=== PATIENT | female | born 1930 | race Caucasian/White ===

== ENCOUNTER 2019-01-18 16:33 | Inpatient (IN) | payer OTHER ==
[~2019-01-18] VITALS: Ht 165.1 cm; Wt 64.0 kg
[2019-01-18] MEDS ORDERED: SODIUM CHLORIDE 0.9% 1,000 ML IV ONE (19:19)
[2019-01-18 19:43] LABS: Basophils # (auto) 0 uL; Basophils % (auto) 0.3 % (0.0-2.0); Eosinophils # (auto) 0.1 uL; Eosinophils % (auto) 0.9 % (0.0-7.0); Hematocrit 38.8 % (36.0-46.0); Hemoglobin 13.5 g/dL (12.2-16.2); Lymphocytes # (auto) 2.3 uL; Lymphocytes % (auto) 37.9 % (10.0-50.0); Mean Corpuscular Hemoglobin 31.9 pg (28.0-32.0); Mean Corpuscular Hgb Conc. 34.9 g/dL (32.0-36.0); Mean Corpuscular Volume 91.4 fL (80.0-100.0); Monocytes # (auto) 0.6 uL; Monocytes % (auto) 10.2 % (0.0-12.0); Neutrophils % (auto) 50.7 % (37.0-80.0); Platelet Count (auto) 247 10^3/uL (140-450); Red Blood Cells 4.24 10^6/uL (4.0-5.20)
[2019-01-18 19:56] LABS: INR 1.03 (0.9-1.15)
[2019-01-18 20:00] LABS: Albumin 3.8 g/dL (3.4-5.0); BUN/Creatinine Ratio 20.3; Calcium 9.6 mg/dL (8.5-10.1); Magnesium 2.4 mg/dL (1.6-2.6); Potassium 3.8 mmol/L (3.5-5.1)
[2019-01-18 20:03] LABS: Bilirubin, Total 0.5 mg/dL (0.2-1.0); Total Protein 7.4 g/dL (6.4-8.2)
[2019-01-18 22:26] LABS: Urine Bacteria FEW /hpf (None Seen); Urine Blood Negative /uL (Negative); Urine Specific Gravity 1.008 (1.001-1.035); Urine WBC 2 /hpf (0 - 5)
[2019-01-19] MEDS ORDERED: DOCUSATE SOD 100 MG CAP PO PRN (03:45)
[2019-01-19] MEDS ORDERED: ONDANSETRON HCL 4 MG/2 ML VIAL IV PRN (03:45)
[2019-01-19] MEDS ORDERED: MORPHINE SULFATE 4 MG/ML SYR/VIAL IV PRN (03:45)
[2019-01-19] MEDS ORDERED: DEXTROSE (50%) 50ML SYRG IV PRN (03:45)
[2019-01-19] MEDS ORDERED: ALUM & MAG HYDROX-SIMETH LIQ(MAALOX) 30 ML PO PRN (03:45)
[2019-01-19] MEDS: InsuLIN REG 1unit/0.01ml Soln (100units/ml) SC SCH ×5 (04:00→20:36)
[2019-01-19] MEDS: ACCU-CHEK COMFORT CURVE STRIP VI SCH ×5 (04:00→20:36)
[2019-01-19] MEDS ORDERED: hydrALAZINE HCL 20 MG/ML VL IV ONE (04:30)
[2019-01-19] MEDS: SODIUM CHLORIDE 0.9% 1,000 ML IV SCH ×2 (05:42→20:22)
[2019-01-19 08:35] VITALS: BP 177/76
--- NOTE | 2019-01-19 09:10 | NUR ---
MS admit from ER [employer], [place] admitted to tele/MS after SBAR received. Patient oriented to Korin Santos, primary RN, unit, room, bed, and unit policies regarding patient care and visiting hours. Patient weighed by bedscale and encouraged to call if they need something. All questions and concerns addressed, patient verbalized understanding. Note:
--- NOTE | 2019-01-19 09:15 | NUR ---
ASSESSMENT NOTE PT IS ALERT ORIENTED X4, ARRIVED BY ALLY FROM ER, GENERALIS WEAKNESS NOTED, LEGALLY BLIND, PT WAS ABLE TO VERBALIS CLEARLY OVER AND OVER HER SITUATION AT HOME, STATED ITS GETTING VERY BAD, I CAN'T GO BACK THERE>, PT IS VERY SHORT THIN, FRAIL, WITH HERZOG CATHETER, URINE IS FOUL, YELLOW TO ORANGE, ABLE TO SELF REPOSITION AND VERBALIS HER DEMANDS, PT IS VERY WEAK TO WALK INDEPENDENTLY, NEED ASSISTANCE, BED SIDE COMMODE PROVIDED, EDUCATED OF HOW TO USE THE CALL LIGHT, WITHIN REACH, BED ALARM ACTIVATED
[2019-01-19] MEDS: cefTRIAXone 1GM/50ML D5W 50 ML IV SCH (10:05)
[2019-01-19 10:32] VITALS: BP 137/73
[2019-01-19] MEDS: ACETAMINOPHEN 325 MG TAB PO PRN (11:45)
[2019-01-19 12:50] LABS: BUN/Creatinine Ratio 14.6; Potassium 3.6 mmol/L (3.5-5.1)
[2019-01-19 13:10] LABS: Basophils # (auto) 0 uL; Basophils % (auto) 0.3 % (0.0-2.0); Eosinophils # (auto) 0 uL; Eosinophils % (auto) 0.1 % (0.0-7.0); Hematocrit 42.3 % (36.0-46.0); Hemoglobin 14.4 g/dL (12.2-16.2); Lymphocytes # (auto) 1.5 uL; Lymphocytes % (auto) 16.8 % (10.0-50.0); Mean Corpuscular Hemoglobin 31.1 pg (28.0-32.0); Mean Corpuscular Volume 91.5 fL (80.0-100.0); Monocytes # (auto) 0.6 uL; Monocytes % (auto) 7.2 % (0.0-12.0); Neutrophils # (auto) 6.7 uL; Neutrophils % (auto) 75.6 % (37.0-80.0); Nucleated Red Blood Cells % 0.1 %; Platelet Count (auto) 294 10^3/uL (140-450); Red Blood Cells 4.62 10^6/uL (4.0-5.20); White Blood Cell 8.8 10^3/uL (4.4-10.8)
[2019-01-19 14:03] VITALS: BP 152/66
--- NOTE | 2019-01-19 15:26 | NUR ---
ANXIETY PT IS SHAKING AND CONTINUE FEELING UPSET REGARDING HER LIVING SITUATION WITH HER SON, REQUESTED MEDICINE TO CALM HER DOWN, ATIVAN GIVEN TO HER
[2019-01-19] MEDS: HYDROcodone-ACET 5/325MG TAB PO PRN ×2 (15:48→20:44)
--- NOTE | 2019-01-19 16:00 | NUR ---
PATIENT'S GRAND DAUGHTER CALLED REQUESTED INFORMATION, MADE AWARE THAT THERE IS NO PASS WORD SET UP YET VERIFY WITH PT, PT DOES NOT WANT THEM TO COME OVER TO VISIT HER OR GIVE ANY INFORMATION OUT
[2019-01-19 16:53] VITALS: BP 151/64
--- NOTE | 2019-01-19 17:25 | NUR ---
PATIENT IS FEELING MUCH BETTER, WALKING AROUND INDEPENDENTLY WITH FRONT WHEEL WALKER, FEELING HAPPY, SITTING ON CHAIR AT BED SIDE
--- NOTE | 2019-01-19 18:40 | NUR ---
PT CONTINUE STABLE, NO DISTRESS NOTED, SITTING AT THE SIDE OF THE BED
--- NOTE | 2019-01-19 19:40 | NUR ---
Opening Shift Note Assumed care of patient, awake, AAOx4. No S/S of distress/SOB or pain. On room air, ambulatory with FWW at bedside. Jaeger catheter patent and draining to gravity. Bed in lowest locked position, side rails up x2, call light within reach. Instructed on POC and to call for assist PRN, will continue to monitor for changes Q1hr and PRN.
[2019-01-19 22:00] VITALS: BP 160/76
[2019-01-19] MEDS: LORazepam 0.5 MG TAB PO PRN (22:22)
[2019-01-20] MEDS: ACCU-CHEK COMFORT CURVE STRIP VI SCH ×7 (00:26→23:41)
[2019-01-20] MEDS: HYDROcodone-ACET 5/325MG TAB PO PRN ×3 (02:35→23:42)
[2019-01-20] MEDS: InsuLIN REG 1unit/0.01ml Soln (100units/ml) SC SCH ×7 (04:12→23:48)
[2019-01-20] MEDS: hydrALAZINE HCL 25 MG TAB PO PRN ×3 (05:10→22:36)
[2019-01-20 06:00] VITALS: BP 158/71
--- NOTE | 2019-01-20 07:30 | NUR ---
Opening Shift Note Assuming care of patient at this time. Patient is awake and alert. Patient denies pain. Patient shows no signs or symptoms of distress or shortness of breath. Bed is locked and lowered with side rails up x2. Instructed patient on the plan of care for today and to call for assistance as needed. Call light within reach. Will continue to round hourly and as needed.
[2019-01-20 09:00] VITALS: BP 134/66
[2019-01-20] MEDS: cefTRIAXone 1GM/50ML D5W 50 ML IV SCH (09:33)
--- NOTE | 2019-01-20 11:03 | NUR ---
PT Patient refused to be OOB during visit and stated she just got back from the restroom. Addendum: 01/20/19 at 1104 by HERMES SONI PTT Amended: Links added.
[2019-01-20] MEDS: SODIUM CHLORIDE 0.9% 1,000 ML IV SCH ×2 (12:55→21:17)
[2019-01-20 13:00] VITALS: BP 150/75
--- NOTE | 2019-01-20 15:22 | NUR ---
Assessment ss consult Pt is a 88 yr old alert and oriented but very anxious patient. SS consult given for "dc to boarding care". Pt was oriented to JUDITH pastrana, president. Pt has no contact # on file other than her home phone #. Pt stated that her family won't give here their phone #. SW dialed contact number and it was disconnected. Pt stated that she "used to live at home with her son, his girlfriend and their kids but that she left all of her stuff there and went to the hospital and doesn't plan on going back." SW asked where she was planning to go to and pt stated that she didn't know. SW educated pt on the options of "room and board" and "board and care" residences. Pt stated that she only gets $800 monthly and that her family can't financially help her. She also stated that she is too blind to live on her own in a room and board with out assistance getting around, bathing and dressing. Pt stated that her son's girlfriend set up caregiving for the pt for $400 monthly but that it wasn't working out due to arguments. Pt stated that she has a history with falls is getting really weak and has a UTI. Pt stated that she uses a shower chair and walker in the home. Pt states that she is really anxious and tried getting up on her own to use the restroom. Pt is a high fall risk. Due to the fact that pt is blind and stated that she can't call the # for room and boards, SW offered to call a couple of the room and board landlords to have them contact her, pt declined. MARIXA also educated pt on the option of private caregivers and offered referral information for the pt. Addendum: 01/20/19 at 1622 by BENITA WATERMAN Amended: Links added.
--- NOTE | 2019-01-20 16:13 | NUR ---
faxed over d/c paperwork and order for placement to Sherri Tracy at [facility]. Sherri Tracy stated Linsey sethi called her and stated she will talk with [place] sethi for placement of this pt
--- NOTE | 2019-01-20 16:29 | NUR ---
Assessment update MARIXA forgot to mention that pt would benefit from for a home safety eval and PT. Addendum: 01/20/19 at 1631 by BENITA WATERMAN SS Amended: Links added.
[2019-01-20 17:00] VITALS: BP 160/75
[2019-01-20 18:09] VITALS: BP 155/88
--- NOTE | 2019-01-20 19:07 | NUR ---
Closing Shift Note Patient resting in bed. No distress noted. Patient has been medicated for pain. Will endorse care to the night auditor RN.
--- NOTE | 2019-01-20 19:10 | NUR ---
Opening Shift Note Assumed care of patient, awake and alert. No S/S of distress/SOB or pain. POC discussed and questions answered. Bed is locked in lowest position with side rails up x2 for safety, call light is within reach and patient is encouraged to call for assistance PRN, will continue to monitor for changes Q1hr and PRN.
[2019-01-20] MEDS: LORazepam 0.5 MG TAB PO PRN (21:22)
[2019-01-20 22:00] VITALS: BP 168/82
[2019-01-21] VITALS (7 sets, daily range): BP systolic 135–160; BP diastolic 68–76
[2019-01-21] MEDS: ACETAMINOPHEN 325 MG TAB PO PRN ×3 (01:56→15:55)
[2019-01-21] MEDS: ACCU-CHEK COMFORT CURVE STRIP VI SCH ×5 (03:58→19:49)
[2019-01-21] MEDS: InsuLIN REG 1unit/0.01ml Soln (100units/ml) SC SCH ×5 (04:02→20:20)
[2019-01-21] MEDS: hydrALAZINE HCL 25 MG TAB PO PRN (06:14)
[2019-01-21] MEDS: HYDROcodone-ACET 5/325MG TAB PO PRN ×3 (06:14→23:10)
[2019-01-21 06:16] LABS: Basophils # (auto) 0 uL; Basophils % (auto) 0.5 % (0.0-2.0); Eosinophils # (auto) 0.1 uL; Eosinophils % (auto) 1.8 % (0.0-7.0); Hematocrit 37.7 % (36.0-46.0); Hemoglobin 13.1 g/dL (12.2-16.2); Lymphocytes # (auto) 1.8 uL; Lymphocytes % (auto) 28.9 % (10.0-50.0); Mean Corpuscular Hemoglobin 31.8 pg (28.0-32.0); Mean Corpuscular Hgb Conc. 34.7 g/dL (32.0-36.0); Mean Corpuscular Volume 91.7 fL (80.0-100.0); Monocytes # (auto) 0.6 uL; Monocytes % (auto) 9.9 % (0.0-12.0); Neutrophils # (auto) 3.6 uL; Neutrophils % (auto) 58.9 % (37.0-80.0); Nucleated Red Blood Cells % 0.1 %; Platelet Count (auto) 233 10^3/uL (140-450); Red Blood Cells 4.11 10^6/uL (4.0-5.20); Red Cell Distribution Width 14.9 % (11.8-14.3); White Blood Cell 6.1 10^3/uL (4.4-10.8)
[2019-01-21 06:42] LABS: Potassium 3.6 mmol/L (3.5-5.1)
[2019-01-21 06:47] LABS: BUN/Creatinine Ratio 19.7; Calcium 8.5 mg/dL (8.5-10.1); Magnesium 2.3 mg/dL (1.6-2.6)
--- NOTE | 2019-01-21 07:32 | NUR ---
OPENING SHIFT NOTES Assumed care of patient from public relations nurse. Patient is alert and oriented x3, patient states she is "confused and cannot remember why she is in the hospital". Patient complaining off lower abdominal pain level 7/10 and requesting pain medication. No other signs of distress noted. Plan of care was reviewed with patient and she verbalized understanding. Jaeger is hanging below bladder level, free of kinks and independent loops and is draining clear yellow urine. Bed is in the lowest position, locked with side rails up x2 and call light in reach. Patient was encouraged to call for assistance.
--- NOTE | 2019-01-21 10:05 | NUR ---
Reassessment SW previously discussed d/c options with patient. MARIXA informed pt that she has has a D/C order in since last night and that she is medically stable to d/[facility]. MARIXA shared options with pt again. Pt's options are to go back home with her son and have HH come in and do a home safety eval, assist with ADL's and possible PT or to pay for a private caregiver in the home. The other option was to have someone from room and board come talk to her about her about their residence, since the pt is unable to see well enough to call on her own and only has $800 a month with no monetary assistance from family. Pt stated that she would like SW to talk with her son about d/c planning. MARIXA called pt's son, Teddy, at [phone] to discuss pt's d/c. MARIXA informed pt's son that pt had a d/c order in since the night prior and that there was no number on file previously to get a hold of him. MARIXA informed pt's son that the pt's insurance declined the extra day in the hospital and that the pt might be receiving a bill. Pt son agreed and then pt agreed to d/c home with HH. Pt's son stated that no one is at home or could transport the pt right now but that he would be driving home from [place] this evening and would pick her up when he got home. Pt will d/c home with family member with HH. Addendum: 01/21/19 at 1014 by BENITA WATERMAN SS Amended: Links added.
[2019-01-21] MEDS: cefTRIAXone 1GM/50ML D5W 50 ML IV SCH (10:38)
--- NOTE | 2019-01-21 10:53 | NUR ---
Dr. Castano at bedside New orders received and carried out
--- NOTE | 2019-01-21 12:31 | NUR ---
Jaeger catheter discontinued Order to discontinue Jaeger catheter. Jaeger discontinued with clean technique following deflation of balloon. Patient tolerated well with no complaints of pain.
--- NOTE | 2019-01-21 12:44 | NUR ---
Discharge planning per consult, patient has orders for home health for safety eval, PT, and home health aide. Placed a follow up call, spoke with Sherri Tracy, continuous pillowcase cutter and was advised that the home health aide is not covered but that she will generate auth for [facility]. Referral sent to continuous pillowcase cutter and [facility]. Patient will have [facility] and start of care will be within 24-48 hours after discharge. Nurse Naranjo was advised of dc plan. Addendum: 01/21/19 at 1252 by DIANE DOE Amended: Links added.
--- NOTE | 2019-01-21 13:42 | NUR ---
Called patient's son to inform him that the patient is being discharged, verbalized understanding. Stated he "is driving a truck from [place] and will not be able to pick her up until 6:00pm".
--- NOTE | 2019-01-21 19:11 | NUR ---
CLOSING SHIFT NOTES Care endorsed to manufacturing shift supervisor RN.
--- NOTE | 2019-01-21 19:52 | NUR ---
CALLED PATIENTS SON FIFI @ [phone], TO FIND OUT WHAT TIME HE WOULD BE HERE TO LEATHER SPONGER HIS MOTHER. FIFI STATED HE IS UNABLE TO LEATHER SPONGER HIS MOTHER AT THIS TIME, AND WILL NOT MAKE IT AT ALL TONIGHT. HE IS STUCK IN [place] FOR WORK. 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 HE SAID HE WOULD BE ABLE TO COME TOMORROW BUT DOES NOT HAVE A SET TIME. WILL PAGE DR. FLETCHER.
--- NOTE | 2019-01-21 20:00 | NUR ---
SPOKE WITH DR. KENNEDY, WHO IS GRANITE POLISHER MACHINE FOR DR FLETCHER. DR KENNEDY STATED HE CAN NOT HOLD DISCHARGE AND TO CALL ANOTHER FAMILY MEMBER TO SEE IF THEY CAN RELAY REPAIRER PATIENT.
--- NOTE | 2019-01-21 20:08 | NUR ---
CALLED SON AND LEFT MESSAGE LETTING HIM KNOW WE REALLY NEED SOMEONE TO COME SEEDLING SORTER HIS MOTHER THE DISCHARGE CANNOT BE HELD. WILL AWAIT PHONE CALL RETURN. IF NO CALL BACK IN THE NEXT HOUR WILL CALL BACK.
--- NOTE | 2019-01-21 20:18 | NUR ---
SPOKE WITH PATIENT, SHE IS STATING SHE DOES NOT HAVE ANY ONE ELSE TO PICK HER UP AND DOES NOT HAVE ANOTHER NUMBER TO CALL, AND DOES NOT HAVE A SALINAS TO THE HOME.
--- NOTE | 2019-01-21 20:59 | NUR ---
ATTEMPTED TO CALL THE NUMBER IN PATIENTS HARD CHART [phone]. NUMBER DOES NOT WORK.
--- NOTE | 2019-01-21 21:00 | NUR ---
MADE ANOTHER PHONE CALL TO PATIENTS SONFIFI. NO ANSWER AT THIS TIME. MESSAGE LEFT FOR SON TO PLEASE CALL BACK.
[2019-01-21] MEDS: SODIUM CHLORIDE 0.9% 1,000 ML IV SCH (22:15)
[2019-01-22] MEDS: ACCU-CHEK COMFORT CURVE STRIP VI SCH ×6 (00:21→20:00)
[2019-01-22] MEDS: InsuLIN REG 1unit/0.01ml Soln (100units/ml) SC SCH ×6 (00:28→21:00)
[2019-01-22] MEDS: LORazepam 0.5 MG TAB PO PRN ×3 (00:29→21:30)
[2019-01-22 05:00] VITALS: BP 150/73
--- NOTE | 2019-01-22 06:59 | NUR ---
OPENING SHIFT NOTES Assumed care of patient from shift supervisor rn nurse. Patient is asleep in bed, no signs of distress or shortness of breath noted. Chest rise and call is symmetrical. Bed is in the lowest and locked position, side rails up x2 and call light is in reach.
--- NOTE | 2019-01-22 07:24 | NUR ---
Called Patient's son stated he "has another job to do and will not be back in town until tonight or tomorrow night. There is no one else that is able to pick her up and the door is locked so there is no way for her to get into the house". I informed the son that the patient is discharged and he verbalized understanding. Will inform Dr. Martell and charge nurse.
[2019-01-22 09:00] VITALS: BP 160/75
--- NOTE | 2019-01-22 09:05 | NUR ---
Charge nurse informed on patient status Explained that the patient's son is unable to picker box operator the patient until tonight, discharge order was placed 01/21/2019.
[2019-01-22] MEDS: cefTRIAXone 1GM/50ML D5W 50 ML IV SCH (10:00)
[2019-01-22] MEDS: HYDROcodone-ACET 5/325MG TAB PO PRN (12:42)
[2019-01-22 13:00] VITALS: BP 148/89
[2019-01-22] MEDS: SODIUM CHLORIDE 0.9% 1,000 ML IV SCH (14:55)
--- NOTE | 2019-01-22 15:26 | NUR ---
Called patient's son Tip that the patient has been discharged. Son stated that he is "on a job and unable to mushroom picker his mother until tomorrow afternoon. There is no one able to pick her up". I educated the son on the need for him to come and get her because of her being discharged and he verbalized understanding and states he will "make some calls and call back".
[2019-01-22 17:26] VITALS: BP 155/71
--- NOTE | 2019-01-22 19:29 | NUR ---
CLOSING SHIFT NOTES Care endorsed to shift supervisor rn RN
[2019-01-22 20:00] VITALS: BP 160/70
[2019-01-22 22:00] VITALS: BP 148/69
[2019-01-23] MEDS: ACCU-CHEK COMFORT CURVE STRIP VI SCH ×4 (04:00→11:46)
[2019-01-23 05:00] VITALS: BP 176/76
[2019-01-23] MEDS: InsuLIN REG 1unit/0.01ml Soln (100units/ml) SC SCH ×4 (06:30→11:46)
--- NOTE | 2019-01-23 07:02 | NUR ---
OPENING SHIFT NOTES Assumed care from shift nurse manager RN. Patient is asleep in bed, no signs of distress or shortness of breath noted, chest rise and fall is symmetrical. Bed is locked in the lowest position, side rails upx2 and call light is in reach.
[2019-01-23] MEDS: SODIUM CHLORIDE 0.9% 1,000 ML IV SCH (07:35)
--- NOTE | 2019-01-23 07:45 | NUR ---
Endorsed care to nurse. No update on family picking her up for discharge. Patient in a irritable mood this am. Was not that way last night. Slept onand off.
--- NOTE | 2019-01-23 08:07 | NUR ---
Patient's son called Called Tip, patient's son, to inquire when he would be here to fiber picker the patient. He stated "I m driving from [facility] to [place]. Then I have to go to [place]. I can pick her up in between but I cannot promise a time, maybe around 6:00pm". I educated the son on the need to come and fiber picker the patient and he verbalized understanding stating he is "trying to figure something out". Told the son to call back to keep me updated on when he plans to pick her up and he verbalized understanding.
[2019-01-23 09:00] VITALS: BP 165/84
[2019-01-23] MEDS: HYDROcodone-ACET 5/325MG TAB PO PRN ×2 (09:50→16:00)
[2019-01-23] MEDS: cefTRIAXone 1GM/50ML D5W 50 ML IV SCH (10:00)
[2019-01-23 13:00] VITALS: BP 159/107
--- NOTE | 2019-01-23 15:30 | NUR ---
Patient complaining of pain level 10/10. Tylenol given as ordered at 1410 Patient stating that she is still in pain 10/10 and is very anxious. Ativan and [place] given as ordered. at 1530 patient reports her pain as 3/10.
--- NOTE | 2019-01-23 15:48 | NUR ---
Discharge Discharge instructions given to patient and her son Tip. Encourage to follow up with PMD as instructed. All questions and concerns addressed. Patient and her son verbalized understanding. Medication reconciliation form completed and copy given to patient. Patient does not have an IV. Patient taken to vehicle via wheelchair with all personal belongings, accompanied by SANNA Balderas and family member. No distress noted at time of departure.
[2019-01-23] MEDS: LORazepam 0.5 MG TAB PO PRN (15:59)
[2019-01-23] MEDS: ACETAMINOPHEN 325 MG TAB PO PRN (16:00)
[2019-01-23 22:41] VITALS: BP 134/60
[2019-01-24 04:52] VITALS: BP 140/59
== END 2019-01-23 15:48 | disposition home health service (06) | DRG 690 ==
LOC: ER 16:33 → EDBD 16:33 → OVERFLOW 16:34 → OBSVTOIN 16:34 → EAST 01-19 09:07
PROVIDERS: ADMIT Hospitalist; ATTEND Internal Medicine
DX: N39.0 Urinary tract infection, site not specified (principal); K86.2 Cyst of pancreas; I10 Essential (primary) hypertension; E11.9 Type 2 diabetes mellitus without complications; I70.0 Atherosclerosis of aorta; F41.9 Anxiety disorder, unspecified; R19.00 Intra-abdominal and pelvic swelling, mass and lump, unspecified site; E78.5 Hyperlipidemia, unspecified; F32.9 Major depressive disorder, single episode, unspecified; Z87.440 Personal history of urinary (tract) infections; Z59.0 Homelessness; Z79.84 Long term (current) use of oral hypoglycemic drugs
CPT/HCPCS: 36415; 71045; 74176; 80048; 80053; 81001; 82150; 82962; 83036; 83690; 83735; 85025; 85610; 85730; 87086; 93005; 96361; 96374; 97116; 97163; 97530; G0378; J0696; J1815

== ENCOUNTER 2019-10-10 23:36 | Inpatient (IN) | payer OTHER ==
--- NOTE | 2018-11-11 16:30 | NUR ---
Assessment Patient is an 89-year-old female who is alert and oriented. Prior to admission patient lived home with her son Teddy and functioned with assistance. Per patient her family helps her with her ADLs. Per patient she has a walker for home use. Per patient she will return home to her prior living arrangements post discharge and her son Teddy will transport her home. Informed patient she has a right to speak to a renal social worker regarding all care. Informed patient he has a right to participate in all discharge planning. Patient verbalized understanding and agreed to discharge plan. Patient son Teddy was contact regarding discharge plan. Teddy stated he is a truck rental manager and will be unable to transport patient until Sunday. Informed CHEPE Shine. Regarding socials service consult for home health physical therapy and safety evaluation was completed by [facility] social service on the weekend. Contact Thu with [facility] regarding order. Per Thu order was received and patient will be seen within 24-48hrs upon d/c day. Patient states she has a front wheel walker. Addendum: 10/14/19 at 0912 by DAWNA STARK Amended: Links added.
[~2019-10-10] VITALS: Ht 160 cm; Wt 42.0 kg
[2019-10-11] MEDS ORDERED: SODIUM CHLORIDE 0.9% 500 ML IV ONE (02:30)
[2019-10-11 04:06] LABS: Basophils # (auto) 0 10 ^3/uL (0-0.2); Basophils % (auto) 0.5 % (0.0-2.0); Eosinophils # (auto) 0.1 10 ^3/uL (0-0.8); Eosinophils % (auto) 1.2 % (0.0-7.0); Hematocrit 33.9 % (36.0-46.0); Hemoglobin 11.7 g/dL (12.2-16.2); Lymphocytes % (auto) 20.8 % (10.0-50.0); Mean Corpuscular Hemoglobin 33.3 pg (28.0-32.0); Mean Corpuscular Hgb Conc. 34.5 g/dL (32.0-36.0); Mean Corpuscular Volume 96.4 fL (80.0-100.0); Monocytes # (auto) 0.3 10 ^3/uL (0-1.3); Monocytes % (auto) 6.9 % (0.0-12.0); Neutrophils # (auto) 3.5 10 ^3/uL (1.6-8.6); Neutrophils % (auto) 70.6 % (37.0-80.0); Platelet Count (auto) 180 10^3/uL (140-450); Red Blood Cells 3.52 10^6/uL (4.0-5.20); Red Cell Distribution Width 14.6 % (11.8-14.3)
[2019-10-11 04:22] LABS: Partial Thromboplastin Time 24.7 sec (23.0-31.2)
[2019-10-11 04:27] LABS: Alanine Aminotransferase 34 U/L (13-56); Albumin 3.1 g/dL (3.4-5.0); Anion Gap 9 (5-15); Aspartate Aminotransferase 17 U/L (15-37); BUN/Creatinine Ratio 26.3; Blood Urea Nitrogen 21 mg/dL (7-18); Calcium 8.1 mg/dL (8.5-10.1); Carbon Dioxide 20 mmol/L (21-32); Chloride 103 mmol/L (98-107); GFR African American 87 mL/min; GFR Non-African American 72 mL/min; Glucose 161 mg/dL (74-106); Magnesium 1.9 mg/dL (1.6-2.6); Potassium 4.1 mmol/L (3.5-5.1); Sodium 132 mmol/L (136-145)
[2019-10-11 04:42] LABS: Alkaline Phosphatase 34 U/L (45-117); Bilirubin, Total 0.5 mg/dL (0.2-1.0); Total Protein 6.5 g/dL (6.4-8.2)
[2019-10-11 05:28] LABS: Urine Bacteria NONE SEEN /hpf (None Seen); Urine Blood Negative /uL (Negative); Urine Hyaline Cast FEW /lpf (0 - 2); Urine Mucus FEW (None Seen); Urine Specific Gravity 1.013 (1.001-1.035); Urine WBC 7 /hpf (0 - 5)
[2019-10-11] MEDS ORDERED: SODIUM CHLORIDE 0.9% 1,000 ML IV SCH (07:23)
[2019-10-11] MEDS ORDERED: ACETAMINOPHEN 325 MG TAB PO PRN (07:30)
[2019-10-11] MEDS ORDERED: DEXTROSE (50%) 50ML SYRG IV PRN (07:30)
[2019-10-11] MEDS ORDERED: DOCUSATE SOD 100 MG CAP PO PRN (07:30)
[2019-10-11] MEDS ORDERED: ONDANSETRON HCL 4 MG/2 ML VIAL IV PRN (07:30)
[2019-10-11] MEDS: ACCU-CHEK COMFORT CURVE STRIP VI SCH ×4 (08:00→20:00)
[2019-10-11] MEDS: InsuLIN REG 1unit/0.01ml Soln (100units/ml) SC SCH ×4 (08:00→20:50)
[2019-10-11] MEDS ORDERED: cefTRIAXone 1GM/50ML D5W 50 ML IV SCH (10:00)
[2019-10-11] MEDS ORDERED: cefTRIAXone SOD 1,000 MG VL ONE (10:14)
--- NOTE | 2019-10-11 10:35 | NUR ---
PATIENT TRANSPORTED VIA WHEELCHAIR FROM ER TO ROOM 290B. PATIENT TOLERATED TRANSPORT WELL WITH NO SIGNS OF SOB OR DISTRESS. WILL CONTINUE TO MONITOR PATIENT.
[2019-10-11 10:42] LABS: Basophils # (auto) 0 10 ^3/uL (0-0.2); Basophils % (auto) 0.4 % (0.0-2.0); Eosinophils # (auto) 0 10 ^3/uL (0-0.8); Eosinophils % (auto) 1.4 % (0.0-7.0); Hematocrit 33.3 % (36.0-46.0); Hemoglobin 11.4 g/dL (12.2-16.2); Lymphocytes % (auto) 28.8 % (10.0-50.0); Mean Corpuscular Hemoglobin 32.9 pg (28.0-32.0); Mean Corpuscular Hgb Conc. 34.3 g/dL (32.0-36.0); Mean Corpuscular Volume 95.9 fL (80.0-100.0); Monocytes # (auto) 0.3 10 ^3/uL (0-1.3); Monocytes % (auto) 8.4 % (0.0-12.0); Neutrophils # (auto) 2.1 10 ^3/uL (1.6-8.6); Nucleated Red Blood Cells % 0.1 %; Platelet Count (auto) 187 10^3/uL (140-450); Red Blood Cells 3.47 10^6/uL (4.0-5.20); Red Cell Distribution Width 14.1 % (11.8-14.3); White Blood Cell 3.4 10^3/uL (4.4-10.8)
[2019-10-11 10:47] LABS: Calcium 8.5 mg/dL (8.5-10.1)
[2019-10-11 10:50] LABS: BUN/Creatinine Ratio 24.1
--- NOTE | 2019-10-11 14:05 | NUR ---
IV insertion IV access obtained, via clean sterile technique by inserting [20] gauge catheter at [LEFT FOREARM] after [2] attempt(s). IV secured properly. No trauma to site. Patient tolerated well. IV removal IV DC'd on right AC with clean sterile technique, catheter fully intact. Pressure dressing applied to site. Patient tolerated well.
--- NOTE | 2019-10-11 16:20 | NUR ---
Received call from the girlfriend, Cary Swanson, of pt's son, Teddy. Per Cary, Teddy is a taxi truck driver and is unable to stay at home with the pt 24 hours a day and pt needs placement. Inquired if pt was a/o and if there was a POA. Informed that pt is confused at times and that there is no POA. Advised that pt would have an assessment and if she was able to make the decision to be placed SS would assist. If she refused, she would be discharged home with an APS referral. If pt is confused, she will be assessed for the most appropriate discharge plan. Also I informed Cary that I could not provide any detailed information due to HIPPA and I have not received authorization from the patient or the son to speak with her.
[2019-10-11 16:50] VITALS: BP 148/76
[2019-10-11] MEDS: HYDROcodone-ACET 5/325MG TAB PO PRN ×2 (17:19→21:47)
--- NOTE | 2019-10-11 19:15 | NUR ---
Opening Shift Note Received report from martha Castro RN. Assumed care of patient, awake and alert. No S/S of distress/SOB or pain. Instructed on POC and to call for assist PRN, will continue to monitor for changes Q1hr and PRN. Bed placed in lowest position, bed alarm turned on and call light within reach.
[2019-10-11 20:00] VITALS: BP 150/68
[2019-10-11 22:00] VITALS: BP 156/58
[2019-10-12] MEDS: ACCU-CHEK COMFORT CURVE STRIP VI SCH ×6 (04:19→20:00)
[2019-10-12] MEDS: InsuLIN REG 1unit/0.01ml Soln (100units/ml) SC SCH ×6 (04:21→20:48)
[2019-10-12] MEDS: HYDROcodone-ACET 5/325MG TAB PO PRN ×3 (04:24→20:40)
--- NOTE | 2019-10-12 04:24 | NUR ---
ROUNDS Patient is requesting pain medication for abd pain. Given norco as ordered. Will monitor
[2019-10-12 04:51] VITALS: BP 145/66
--- NOTE | 2019-10-12 05:03 | NUR ---
Patient is resting in bed with eyes closed. Patient is saturating at 95%on room air and denies pain at this time.
--- NOTE | 2019-10-12 07:30 | NUR ---
Opening Shift Note Assumed care of patient, awake and alert. No S/S of distress/SOB or pain. Instructed on POC and to call for assist PRN, will continue to monitor for changes Q1hr and PRN. Bed is locked and in lowest position. Call light within reach.
[2019-10-12 09:05] VITALS: BP_SYST 153; BP_SYST 160; BP_SYST 163; BP_DIAS 75; BP_DIAS 82; BP_DIAS 94
[2019-10-12 13:00] VITALS: BP 176/73
--- NOTE | 2019-10-12 14:06 | NUR ---
FAXED PATIENT FACE SHEET, H&P AND HOME HEALTH ORDER X3 TIMES. FAX STATED NO RESPONSE. PHONE CALL MADE TO [facility]. NO RESPONSE WILL CONTINUE TO FAX.
--- NOTE | 2019-10-12 14:26 | NUR ---
SS consult regarding Home Health safety eval for pt. Contacted by ALEXIA Donald for [facility], and informed to send order to [facility]. Faxed clinical information to [place] but no discharge order for today per nurse. Gloria, covering nurse, states pt is alert and oriented x's four and is adamant that she will not go to a correction. Pt states her son is a cdl team truck driver but that her granddaughter is there with her. Pt to return home per her wishes with home health upon discharge and will be provided information on POA as well as additional caregivers.
--- NOTE | 2019-10-12 14:52 | NUR ---
PHONE CALL RECEIVED FROM SALLY OLMSTEAD [phone] REGARDING PATIENT HOME SAFETY. SON STATED PATIENT IS UNSAFE AT HOME DUE TO FREQUENT FALLS AND CONSIDERED LEGALLY BLIND. SON STEVENSON DOES NOT HAVE ANYBODY WHO COULD ATTEND TO PATIENTS NEEDS DUE TO HAVING TO WORK. SON STATED HE IS LOOSING HIS HOME DUE TO FINANCIAL DIFFICULTIES, IS TRYING TO SAVE HOME BY WORKING A ERECTING ENGINEER AND WILL BE OUT OF TOWN FOR A LONG PERIOD OF TIME. THIS WOULD LEAVE THE PATIENT WITH NO HEATER OPERATOR. SON STATED SISTER BRIAN WORKS FOR A COUPLE OF ASSISTED LIVINGS WERE PATIENT COULD BE PLACED FOR SAFETY. PATIENT IS ADAMANT OF GOING HOME AND INFORMED PHYSICAL THERAPY SHE HAS A HEATER OPERATOR NAMED THUY AND HER GRANDDAUGHTER HELPS HER AT HOME. PATIENT WOULD LIKE TO GO HOME. WILL ADVICE DOCTOR OF PATIENT AND SON REPORT REGARDING HOME SAFETY.
[2019-10-12 16:44] VITALS: BP 164/76
--- NOTE | 2019-10-12 17:50 | NUR ---
PHONE CALL MADE TO SALLY OLMSTEAD [phone] REGARDING PATIENT DISCHARGE PLAN. NO ANSWER X 2 VOICEMAIL LEFT. AWAITING PHONE CALL TO DISCUSS DISCHARGE PLAN.
--- NOTE | 2019-10-12 18:00 | NUR ---
FAXED OVER HOME HEALTH ORDER, FACE SHEET AND H&P TO [facility] FAX [phone] AND TO [facility] FAX [phone].
--- NOTE | 2019-10-12 19:15 | NUR ---
Opening Shift Note Received report from martha Castro RN. Assumed care of patient, awake and alert. No S/S of distress/SOB but patient is complaining of pain to right lower abdomen where patient states she has hernia. Will give pain medication as ordered. Instructed on POC and to call for assist PRN, will continue to monitor for changes Q1hr and PRN. Bed placed in lowest position, bed alarm turned on and call light within reach.
[2019-10-12 20:00] VITALS: BP 160/66
[2019-10-13] MEDS: ACCU-CHEK COMFORT CURVE STRIP VI SCH ×6 (00:20→20:00)
--- NOTE | 2019-10-13 04:00 | NUR ---
ROUNDS Patient's blood sugar is 200mg/dl, covered with 3 units of reg insulin. Patient states she has pain to right abd. Will give pain medication as ordered. Patient is alert and oriented, no distress noted. Patient is on room air saturating at 94%.
[2019-10-13] MEDS: InsuLIN REG 1unit/0.01ml Soln (100units/ml) SC SCH ×6 (04:26→20:51)
[2019-10-13] MEDS: HYDROcodone-ACET 5/325MG TAB PO PRN ×3 (04:57→19:05)
[2019-10-13 05:30] VITALS: BP 168/73
--- NOTE | 2019-10-13 06:32 | NUR ---
MD NOTIFIED MD CALLED REGARDING PATIENT'S BLOOD PRESSURE OF 168/73 AND 167/76 RESPECTIVELY. MD POWER GIVE AN ORDER FOR HYDRALAZINE 10MG IV EVERY 6 HOURS FOR BLOOD PRESSURE OVER 160. ORDER NOTED.
[2019-10-13] MEDS ORDERED: hydrALAZINE HCL 20 MG/ML VL IV PRN (06:45)
--- NOTE | 2019-10-13 06:58 | NUR ---
CALLED PHARMACY REGARDING THE UNAVAILABILITY OF HYDRALAZINE IV, AND ADRYAN FROM PHARMACY STATED THAT MEDICATION IS BACK ORDER FOR QUIT SOMETIME NOW.
--- NOTE | 2019-10-13 07:00 | NUR ---
NOTIFIED REGARDING MEDICATION BACK ORDER TO GET A DIFFERENT KIND OF BLOOD PRESSURE MEDICATION. LEFT A MESSAGE AND AWAITING CALL BACK FROM DR KENNEDY.
--- NOTE | 2019-10-13 07:00 | NUR ---
ROUNDS PATIENT IS RESTING IN BED WITH EYES CLOSED, NO DISTRESS NOTED.
[2019-10-13 08:53] VITALS: BP 185/91
--- NOTE | 2019-10-13 10:50 | NUR ---
1045 10/13/19 I called [facility] and spoke with disease case manager Raeann to request that authorization be provided for patient's admission and continued stay. Per Raeann, authorization is for observation level only with number [id number]. Faxed Notice Regarding Post Stabilization to [facility], document scanned into [employer]. Patient for discharge home today. Per Raeann, [facility] to follow patient, and walker to be delivered from [facility]. I called [facility] [phone] and spoke with Jackie, ETA for walker to be delivered to bedside is 1-2 hours.
[2019-10-13] MEDS ORDERED: cloNIDine HCL 0.1 MG TAB PO ONE (12:30)
[2019-10-13 13:00] VITALS: BP 72/86
[2019-10-13] MEDS ORDERED: amLODIPine BESYLATE 5 MG TAB PO ONE (14:00)
[2019-10-13] MEDS ORDERED: cloNIDine HCL 0.1 MG TAB PO PRN (14:00)
[2019-10-13] MEDS ORDERED: amLODIPine BESYLATE 5 MG TAB PO SCH (15:00)
[2019-10-13] MEDS ORDERED: AML5T PO (15:42)
[2019-10-13 17:00] VITALS: BP 148/81
--- NOTE | 2019-10-13 20:00 | NUR ---
Opening Shift Note Assumed care of patient. Awake, alert and oriented x4. No S/S of distress/SOB or pain. Instructed on POC and to call for assist PRN. Bed locked, in lowest position, call light within reach, side rails up x2. Will continue to monitor for changes Q1hr and PRN.
[2019-10-13 22:00] VITALS: BP 153/73
[2019-10-14] MEDS: ACCU-CHEK COMFORT CURVE STRIP VI SCH ×3 (00:08→08:27)
[2019-10-14] MEDS: HYDROcodone-ACET 5/325MG TAB PO PRN (00:17)
--- NOTE | 2019-10-14 01:15 | NUR ---
Pt moved to different room Pt complaining of not being able to sleep because of noise from other pts machines. Informed pt that we would move her to another room but cannot promise that it would be much quieter. Offered pt ear plugs to which she said does not work. Pt was moved to room 279B
[2019-10-14] MEDS: InsuLIN REG 1unit/0.01ml Soln (100units/ml) SC SCH ×3 (03:46→08:24)
[2019-10-14 05:00] VITALS: BP 159/78
[2019-10-14] MEDS ORDERED: amLODIPine BESYLATE 5 MG TAB PO SCH (10:00)
--- NOTE | 2019-10-14 10:40 | NUR ---
DISCHARGE Patient given discharge paperwork, all questions and concerns answered. Patient telemonitor removed and sent to ICU. IV removal IV DC'd with clean sterile technique, catheter fully intact. Pressure dressing applied to site. Patient tolerated well.
== END 2019-10-14 10:30 | disposition home health service (06) | DRG 312 ==
LOC: EDBD 23:36 → ER 23:36 → TELE 23:37 → TELE-WESTW 10-11 10:52
PROVIDERS: ADMIT Hospitalist; ATTEND Hospitalist
DX: R55 Syncope and collapse (principal); N39.0 Urinary tract infection, site not specified; E86.0 Dehydration; R53.1 Weakness; D64.9 Anemia, unspecified; E11.65 Type 2 diabetes mellitus with hyperglycemia; I11.9 Hypertensive heart disease without heart failure; M47.812 Spondylosis without myelopathy or radiculopathy, cervical region; R00.1 Bradycardia, unspecified; R00.0 Tachycardia, unspecified; E78.5 Hyperlipidemia, unspecified; H54.7 Unspecified visual loss; Z87.440 Personal history of urinary (tract) infections; F32.9 Major depressive disorder, single episode, unspecified; F41.9 Anxiety disorder, unspecified; I27.21 Secondary pulmonary arterial hypertension; I95.9 Hypotension, unspecified; E78.1 Pure hyperglyceridemia
CPT/HCPCS: 36415; 70450; 71045; 72125; 80048; 80053; 80061; 81001; 82962; 83036; 83735; 83880; 84443; 84484; 85025; 85379; 85610; 85730; 93005; 93306; 93886; 97163; G0378; J0696; J1815

== ENCOUNTER 2019-12-08 20:22 | Inpatient (IN) | payer OTHER ==
[~2019-12-08] VITALS: Ht 152.4 cm; Wt 40.9 kg
[~2019-12-08 20:22] MED LIST: AML5T PO
[2019-12-08] MEDS ORDERED: ACCU-CHEK COMFORT CURVE STRIP VI ONE (20:45)
[2019-12-08 21:30] LABS: Basophils # (auto) 0 10 ^3/uL (0-0.2); Basophils % (auto) 0.5 % (0.0-2.0); Eosinophils # (auto) 0.3 10 ^3/uL (0-0.8); Eosinophils % (auto) 3.7 % (0.0-7.0); Hematocrit 34.4 % (36.0-46.0); Hemoglobin 11.8 g/dL (12.2-16.2); Lymphocytes # (auto) 1.1 10 ^3/uL (0.4-5.4); Lymphocytes % (auto) 16.1 % (10.0-50.0); Mean Corpuscular Hemoglobin 32.4 pg (28.0-32.0); Mean Corpuscular Hgb Conc. 34.3 g/dL (32.0-36.0); Mean Corpuscular Volume 94.4 fL (80.0-100.0); Monocytes # (auto) 0.8 10 ^3/uL (0-1.3); Monocytes % (auto) 11.3 % (0.0-12.0); Neutrophils # (auto) 4.8 10 ^3/uL (1.6-8.6); Neutrophils % (auto) 68.4 % (37.0-80.0); Platelet Count (auto) 269 10^3/uL (140-450); Red Blood Cells 3.64 10^6/uL (4.0-5.20); Red Cell Distribution Width 13.2 % (11.8-14.3)
[2019-12-08 21:43] LABS: Albumin 3.4 g/dL (3.4-5.0); Anion Gap 10 (5-15); Blood Urea Nitrogen 19 mg/dL (7-18); Calcium 9.9 mg/dL (8.5-10.1); Carbon Dioxide 25 mmol/L (21-32); Chloride 98 mmol/L (98-107); Glucose 165 mg/dL (74-106); Magnesium 1.8 mg/dL (1.6-2.6); Potassium 3.9 mmol/L (3.5-5.1); Sodium 133 mmol/L (136-145)
[2019-12-08 21:46] LABS: GFR African American 72 mL/min; GFR Non-African American 59 mL/min
[2019-12-08 21:51] LABS: Alanine Aminotransferase 23 U/L (13-56); Alkaline Phosphatase 58 U/L (45-117); Aspartate Aminotransferase 18 U/L (15-37); Bilirubin, Total 0.5 mg/dL (0.2-1.0); Total Protein 7.6 g/dL (6.4-8.2)
[2019-12-08 22:11] LABS: INR 1.05 (0.9-1.15); Partial Thromboplastin Time 26.5 sec (23.0-31.2)
[2019-12-09] MEDS ORDERED: ONDANSETRON HCL 4 MG/2 ML VIAL IV PRN (02:30)
[2019-12-09] MEDS ORDERED: MORPHINE SULF INJ 2 MG/ML SYRINGE 1ML IV PRN (02:30)
[2019-12-09] MEDS ORDERED: ALBUMIN 5% 250 ML IV ONE (02:30)
[2019-12-09] MEDS ORDERED: NITROGLYCERIN 0.4 MG SL TAB SL PRN (02:30)
[2019-12-09] MEDS ORDERED: DEXTROSE (50%) 50ML SYRG IV PRN (02:30)
[2019-12-09] MEDS ORDERED: TEMAZEPAM 15 MG CAP PO PRN (02:30)
[2019-12-09 04:57] VITALS: BP 131/55
[2019-12-09 05:28] VITALS: BP 133/59
[2019-12-09] MEDS: ACCU-CHEK COMFORT CURVE STRIP VI SCH ×4 (06:25→22:00)
[2019-12-09] MEDS: InsuLIN REG 1unit/0.01ml Soln (100units/ml) SC SCH ×4 (06:25→23:26)
[2019-12-09 09:00] VITALS: BP 152/52
[2019-12-09] MEDS: ENOXAPARIN SOD 40 MG/0.4 ML SYRINGE SC SCH ×2 (10:30→10:41)
[2019-12-09] MEDS: FAMOTIDINE 20 MG TAB PO SCH ×2 (10:30→10:41)
[2019-12-09 13:00] VITALS: BP 139/62
[2019-12-09] MEDS ORDERED: IOHEXOL 350 MG/ML 100ML IJ ONE (13:41)
[2019-12-09] MEDS ORDERED: METO25TA5 PO (15:09)
[2019-12-09] MEDS ORDERED: GABA100C9 PO (15:09)
[2019-12-09] MEDS ORDERED: METF-370 PO (15:09)
[2019-12-09] MEDS ORDERED: LOSA-69 PO (15:09)
[2019-12-09] MEDS ORDERED: FAMO-12 PO (15:09)
[2019-12-09] MEDS ORDERED: DONE5TAB31 PO (15:09)
[2019-12-09] MEDS ORDERED: ATOR10TA PO (15:09)
[2019-12-09] MEDS ORDERED: SERT-274 PO (15:09)
[2019-12-09] MEDS ORDERED: OXYB5TAB24 PO ×2 (15:09)
[2019-12-09] MEDS ORDERED: TRAZ-181 PO (15:09)
[2019-12-09] MEDS ORDERED: HYDR25TA4 PO (15:09)
[2019-12-09] MEDS ORDERED: GLIM4TAB42 PO (15:09)
[2019-12-09] MEDS ORDERED: GLIP5TAB12 PO (15:09)
[2019-12-09 17:00] VITALS: BP 163/79
[2019-12-09] MEDS: ACETAMINOPHEN 325 MG TAB PO PRN ×2 (17:27→23:40)
[2019-12-09 19:03] LABS: Basophils # (auto) 0 10 ^3/uL (0-0.2); Eosinophils # (auto) 0.2 10 ^3/uL (0-0.8); Lymphocytes # (auto) 1.3 10 ^3/uL (0.4-5.4); Monocytes # (auto) 0.6 10 ^3/uL (0-1.3); Neutrophils # (auto) 3.9 10 ^3/uL (1.6-8.6)
[2019-12-09 19:09] LABS: Basophils % (auto) 0.4 % (0.0-2.0); Eosinophils % (auto) 3.2 % (0.0-7.0); Hematocrit 33.2 % (36.0-46.0); Hemoglobin 11.6 g/dL (12.2-16.2); Lymphocytes % (auto) 22.2 % (10.0-50.0); Mean Corpuscular Hemoglobin 33.1 pg (28.0-32.0); Mean Corpuscular Hgb Conc. 35.1 g/dL (32.0-36.0); Mean Corpuscular Volume 94.3 fL (80.0-100.0); Monocytes % (auto) 9.7 % (0.0-12.0); Neutrophils % (auto) 64.5 % (37.0-80.0); Platelet Count (auto) 267 10^3/uL (140-450); Red Blood Cells 3.52 10^6/uL (4.0-5.20); Red Cell Distribution Width 13.1 % (11.8-14.3)
[2019-12-09 19:11] LABS: BUN/Creatinine Ratio 23.3; Calcium 9.5 mg/dL (8.5-10.1); Potassium 3.4 mmol/L (3.5-5.1)
[2019-12-09] MEDS ORDERED: LORazepam 2MG/ML-1ML VIAL IV PRN (20:00)
[2019-12-09 22:00] VITALS: BP 156/70
[2019-12-09] MEDS ORDERED: ATORVASTATIN 20 MG TAB PO SCH ×2 (22:00)
[2019-12-09] MEDS ORDERED: DONEPEZIL HYDROCHLORIDE 5 MG TAB PO SCH (22:00)
[2019-12-09] MEDS ORDERED: traZODone HCL 50 MG TAB PO SCH (22:00)
[2019-12-09] MEDS: OXYBUTYNIN CHL 5 MG TAB PO SCH (23:24)
[2019-12-09] MEDS: METOPROLOL TARTRATE 25 MG TAB PO SCH (23:25)
[2019-12-09] MEDS: GABAPENTIN 100 MG CAP PO SCH (23:25)
[2019-12-10 05:00] VITALS: BP 124/50
[2019-12-10] MEDS: GABAPENTIN 100 MG CAP PO SCH ×2 (06:30→14:13)
[2019-12-10] MEDS: ACCU-CHEK COMFORT CURVE STRIP VI SCH ×3 (06:30→17:21)
[2019-12-10] MEDS: InsuLIN REG 1unit/0.01ml Soln (100units/ml) SC SCH ×2 (06:32→17:23)
[2019-12-10 06:47] LABS: Basophils # (auto) 0 10 ^3/uL (0-0.2); Basophils % (auto) 0.5 % (0.0-2.0); Eosinophils # (auto) 0.3 10 ^3/uL (0-0.8); Eosinophils % (auto) 5.7 % (0.0-7.0); Hematocrit 33.7 % (36.0-46.0); Hemoglobin 11.5 g/dL (12.2-16.2); Lymphocytes # (auto) 1.5 10 ^3/uL (0.4-5.4); Lymphocytes % (auto) 28.9 % (10.0-50.0); Mean Corpuscular Hemoglobin 32.1 pg (28.0-32.0); Mean Corpuscular Volume 94.4 fL (80.0-100.0); Monocytes # (auto) 0.8 10 ^3/uL (0-1.3); Monocytes % (auto) 16.3 % (0.0-12.0); Neutrophils # (auto) 2.4 10 ^3/uL (1.6-8.6); Neutrophils % (auto) 48.6 % (37.0-80.0); Platelet Count (auto) 264 10^3/uL (140-450); Red Blood Cells 3.57 10^6/uL (4.0-5.20); Red Cell Distribution Width 13.1 % (11.8-14.3)
[2019-12-10 07:01] LABS: INR 1.03 (0.9-1.15); Partial Thromboplastin Time 26.4 sec (23.0-31.2)
[2019-12-10 07:14] LABS: Calcium 9.5 mg/dL (8.5-10.1); Potassium 3.5 mmol/L (3.5-5.1)
[2019-12-10 07:15] LABS: BUN/Creatinine Ratio 33.8
[2019-12-10] MEDS ORDERED: LIDOCAINE 2% (LOCAL ANESTH.) PF 5ml SDV IJ ONE (08:15)
[2019-12-10 09:02] VITALS: BP 132/66
[2019-12-10] MEDS ORDERED: ASPirin-EC 81 mg tab PO SCH (10:00)
[2019-12-10] MEDS ORDERED: INSULIN LANTUS (GLARGINE) 1 /0.01ml (100units/ml) SC SCH (10:00)
[2019-12-10] MEDS ORDERED: amLODIPine BESYLATE 5 MG TAB PO SCH (10:00)
[2019-12-10] MEDS ORDERED: FAMOTIDINE 20 MG TAB PO SCH ×2 (10:00)
[2019-12-10] MEDS ORDERED: LOSARTAN POTASSIUM 50 MG TAB PO SCH (10:00)
[2019-12-10] MEDS ORDERED: SERTRALINE HCL 50 MG TAB PO SCH (10:00)
[2019-12-10] MEDS ORDERED: METO25TA5 PO (11:00)
[2019-12-10] MEDS ORDERED: ASPI-543 PO (11:00)
[2019-12-10] MEDS: OXYBUTYNIN CHL 5 MG TAB PO SCH (12:28)
[2019-12-10] MEDS: METOPROLOL TARTRATE 25 MG TAB PO SCH (12:32)
[2019-12-10 12:45] VITALS: BP 124/75
[2019-12-10 16:23] VITALS: BP 159/74
[2019-12-10] MEDS: ACETAMINOPHEN 325 MG TAB PO PRN (17:17)
[2019-12-10 18:33] VITALS: BP 151/58
[2019-12-10 18:48] VITALS: BP 151/58
== END 2019-12-10 19:42 | disposition home health service (06) | DRG 261 ==
LOC: EDBD 20:22 → ER 20:24 → TELE 20:25 → TELE-CENTR 12-09 04:15
PROVIDERS: ADMIT Nurse Practitioner; ATTEND Internal Medicine
PROC: 0JH632Z Insertion of Monitoring Device into Chest Subcutaneous Tissue and Fascia, Percutaneous Approach (ICD-10-PCS; principal; 2019-12-10)
DX: R00.1 Bradycardia, unspecified (principal); E87.1 Hypo-osmolality and hyponatremia; R55 Syncope and collapse; E11.9 Type 2 diabetes mellitus without complications; I10 Essential (primary) hypertension; F32.9 Major depressive disorder, single episode, unspecified; F41.9 Anxiety disorder, unspecified; E78.5 Hyperlipidemia, unspecified; E87.6 Hypokalemia; D35.02 Benign neoplasm of left adrenal gland; D63.8 Anemia in other chronic diseases classified elsewhere; F03.90 Unspecified dementia, unspecified severity, without behavioral disturbance, psychotic disturbance, mood disturbance, and anxiety; H35.30 Unspecified macular degeneration; Z90.710 Acquired absence of both cervix and uterus; Z79.899 Other long term (current) drug therapy
CPT/HCPCS: 36415; 70450; 71045; 71275; 80048; 80053; 82607; 82746; 82962; 83735; 83880; 84443; 84484; 85025; 85379; 85610; 85730; 93005; 93886; 93970; 97110; 97116; 97530; G0378; J1815

== ENCOUNTER 2019-12-23 17:11 | Inpatient (IN) | payer OTHER ==
[~2019-12-23] VITALS: Ht 162.6 cm; Wt 41.5 kg
[~2019-12-23 17:11] MED LIST changes: -AML5T PO; +ASPI-543 PO; +ATOR10TA PO; +DONE5TAB31 PO; +FAMO-12 PO; +GABA100C9 PO; +GLIM4TAB42 PO; +GLIP5TAB12 PO; +HYDR25TA4 PO; +LOSA-69 PO; +METF-370 PO; +METO25TA5 PO; +OXYB5TAB24 PO; +SERT-274 PO; +TRAZ-181 PO
[2019-12-23 18:20] LABS: Basophils # (auto) 0 10 ^3/uL (0-0.2); Basophils % (auto) 0.5 % (0.0-2.0); Eosinophils # (auto) 0.3 10 ^3/uL (0-0.8); Eosinophils % (auto) 4.9 % (0.0-7.0); Hematocrit 32.3 % (36.0-46.0); Hemoglobin 11.1 g/dL (12.2-16.2); Lymphocytes # (auto) 1.4 10 ^3/uL (0.4-5.4); Lymphocytes % (auto) 25.9 % (10.0-50.0); Mean Corpuscular Hemoglobin 32.1 pg (28.0-32.0); Mean Corpuscular Hgb Conc. 34.4 g/dL (32.0-36.0); Mean Corpuscular Volume 93.4 fL (80.0-100.0); Monocytes # (auto) 0.6 10 ^3/uL (0-1.3); Monocytes % (auto) 11.6 % (0.0-12.0); Neutrophils # (auto) 3.2 10 ^3/uL (1.6-8.6); Neutrophils % (auto) 57.1 % (37.0-80.0); Platelet Count (auto) 279 10^3/uL (140-450); Red Blood Cells 3.46 10^6/uL (4.0-5.20); Red Cell Distribution Width 13.6 % (11.8-14.3); White Blood Cell 5.6 10^3/uL (4.4-10.8)
[2019-12-23 18:41] LABS: Albumin 3.4 g/dL (3.4-5.0); Anion Gap 7 (5-15); Blood Urea Nitrogen 18 mg/dL (7-18); Calcium 9.6 mg/dL (8.5-10.1); Carbon Dioxide 29 mmol/L (21-32); Chloride 97 mmol/L (98-107); Glucose 260 mg/dL (74-106); Potassium 3.7 mmol/L (3.5-5.1); Sodium 133 mmol/L (136-145)
[2019-12-23 18:44] LABS: Alanine Aminotransferase 24 U/L (13-56); Aspartate Aminotransferase 18 U/L (15-37); BUN/Creatinine Ratio 21.4; GFR African American 82 mL/min; GFR Non-African American 68 mL/min
[2019-12-23 18:48] LABS: Alkaline Phosphatase 59 U/L (45-117); Bilirubin, Total 0.4 mg/dL (0.2-1.0); Total Protein 7.4 g/dL (6.4-8.2)
[2019-12-23] MEDS ORDERED: DEXTROSE (50%) 50ML SYRG IV PRN (22:15)
[2019-12-23] MEDS ORDERED: NITROGLYCERIN 0.4 MG SL TAB SL PRN (22:15)
[2019-12-23] MEDS ORDERED: MORPHINE SULF INJ 2 MG/ML SYRINGE 1ML IV PRN (22:15)
[2019-12-23] MEDS ORDERED: ONDANSETRON HCL 4 MG/2 ML VIAL IV PRN (22:15)
[2019-12-23] MEDS ORDERED: hydrALAZINE HCL 20 MG/ML VL IV ONE (23:00)
--- NOTE | 2019-12-24 02:06 | NUR ---
Telemetry admit from ER [place], [place] admitted to Telemetry unit after SBAR received. Patient oriented to Aurelia Goss, primary RN, unit, room, bed, and unit policies regarding patient care and visiting hours. Patient now on continuous telemetry monitoring, tele box # [id number] and telemetry reading on arrival to unit is SR in 60's. Patient placed on bedside oxygen, weighed by bedscale and encouraged to call if they need something. All questions and concerns addressed, patient verbalized understanding.
[2019-12-24] MEDS: ACETAMINOPHEN 325 MG TAB PO PRN ×2 (03:08→20:34)
[2019-12-24 04:57] VITALS: BP 161/72
[2019-12-24 05:00] VITALS: BP 161/72
--- NOTE | 2019-12-24 06:00 | NUR ---
Reassessed BP BP 159/77 HR 65, hospitalist was paged at this time a second time. Awaiting call back.
[2019-12-24] MEDS: ACCU-CHEK COMFORT CURVE STRIP VI SCH ×4 (06:01→21:36)
[2019-12-24] MEDS: InsuLIN REG 1unit/0.01ml Soln (100units/ml) SC SCH ×4 (06:22→22:19)
[2019-12-24] MEDS: GABAPENTIN 100 MG CAP PO SCH ×3 (06:23→21:20)
[2019-12-24 06:51] LABS: Basophils # (auto) 0 10 ^3/uL (0-0.2); Basophils % (auto) 0.4 % (0.0-2.0); Eosinophils # (auto) 0.2 10 ^3/uL (0-0.8); Eosinophils % (auto) 3.3 % (0.0-7.0); Hematocrit 34.6 % (36.0-46.0); Hemoglobin 11.7 g/dL (12.2-16.2); Lymphocytes # (auto) 1.4 10 ^3/uL (0.4-5.4); Lymphocytes % (auto) 20.2 % (10.0-50.0); Mean Corpuscular Hemoglobin 31.8 pg (28.0-32.0); Mean Corpuscular Hgb Conc. 33.9 g/dL (32.0-36.0); Mean Corpuscular Volume 93.8 fL (80.0-100.0); Monocytes # (auto) 0.7 10 ^3/uL (0-1.3); Neutrophils # (auto) 4.7 10 ^3/uL (1.6-8.6); Neutrophils % (auto) 66.1 % (37.0-80.0); Platelet Count (auto) 293 10^3/uL (140-450); Red Blood Cells 3.69 10^6/uL (4.0-5.20); Red Cell Distribution Width 13.5 % (11.8-14.3)
[2019-12-24 06:53] VITALS: BP 159/77
--- NOTE | 2019-12-24 06:58 | NUR ---
Call back from hospitalist Informed LITHOGRAPH PRINTER Galo of elevated BP, per hospitalist, administer antihypertensive medications as scheduled in am.
[2019-12-24 07:08] LABS: Albumin 3.5 g/dL (3.4-5.0); Calcium 9.8 mg/dL (8.5-10.1); Potassium 3.6 mmol/L (3.5-5.1)
[2019-12-24 07:11] LABS: BUN/Creatinine Ratio 22.1; Bilirubin, Total 0.6 mg/dL (0.2-1.0); Total Protein 7.8 g/dL (6.4-8.2)
--- NOTE | 2019-12-24 08:00 | NUR ---
RECEIVED PATIENT ALERT AND ORIENTED X4, LEGALLY BLIND, NOT IN DISTRESS, CLEAR LA IN BILATERAL LUNG LOBES, RR=18 SAT=97%, DEEP BREATHING AND COUGHING ENCOURAGED, VERBALIZED UNDERSTANDING, SR R=76 ON TELE MONITOR, ABDOMEN SOFT AND ROUND WITH ACTIVE BOWL SOUNDS, LAST BM=12/23/19 REPORTED, TOLERATING BSC WITH ASSISTANCE, SKIN INTACT WARM TO TOUCH, RADIAL AND PEDAL PULSES PALPABLE, RESTING ON BED, HEAD OF BED ELEVATED, BED ON LOW POSITION, RAILS UP X2, CALL LIGHT ON REACH, WILL CONTINUE MONITORING.
[2019-12-24 09:00] VITALS: BP 166/95
[2019-12-24] MEDS: ASPirin 81 mg TAB PO SCH (11:24)
[2019-12-24] MEDS: LOSARTAN POTASSIUM 50 MG TAB PO SCH (11:25)
[2019-12-24] MEDS: HCTZ 25 MG TAB PO SCH (11:25)
[2019-12-24] MEDS: FAMOTIDINE 20 MG TAB PO SCH (11:26)
[2019-12-24] MEDS: ENOXAPARIN SOD 40 MG/0.4 ML SYRINGE SC SCH (11:26)
[2019-12-24] MEDS: METOPROLOL TARTRATE 25 MG TAB PO SCH ×2 (11:26→21:19)
[2019-12-24 13:00] VITALS: BP 163/73
--- NOTE | 2019-12-24 14:19 | NUR ---
OUT OF BED X2 TO BSC WITH ASSISTANCE, TOLERATED WELL, TOLERATING PROVIDED DIET TRAY WELL, WILL CONTINUE MONITORING.
--- NOTE | 2019-12-24 15:32 | NUR ---
Assessment Regarding social service consult for concerns on Safety for walking. Patient is an 89-year-old alert and oriented female that is pleasant and able to make her needs known. Patient resides with her son, Teddy and family and functioned with assistance. Patient has a walker for home use. Patient states she had nurses out before and if receptive to having them come out again. Per patient she will return home to her prior living arrangements post discharge and her son Teddy will transport her home. Patient verbalize understanding d/c plan. Per social service consult for safety evaluation. Faxed clinical information to [facility]. Per Thu with [facility] patient has been accepted and service to start within 24-48hrs upon d.c day. Addendum: 12/24/19 at 1538 by DAWNA SHARIF Amended: Links added.
[2019-12-24 17:00] VITALS: BP 168/82
--- NOTE | 2019-12-24 18:00 | NUR ---
TOLERATED DINNER TRAY WELL, AMBULATED TO BR WITH ASSISTANCE, BACK TO BED AND RESTING, PENDING CARDIAC STRESS TEST AND PACE MAKER INTERROGATION IN AM ORDERED, WILL CONTINUE MONITORING.
--- NOTE | 2019-12-24 19:11 | NUR ---
Opening Shift Note Assumed care of patient after receiving report. Patient is awake and alert with no S/S of distress/SOB or pain. Call light within reach, bed in lowest locked position x2 side rails up, and bed alarm on. Instructed on POC and to call for assist PRN, will continue to monitor for changes Q1hr and PRN.
--- NOTE | 2019-12-24 19:20 | NUR ---
RESTING ON BED, NOT IN DISTRESS, HEAD OF BED ELEVATED, BED ON LOW POSITION, RAILS UP X2, CALL LIGHT ON REACH, REPORT WAS GIVEN TO THE DISABILITIES CAREGIVER RN.
--- NOTE | 2019-12-24 20:00 | NUR ---
Patient education/safety Patient educated on safety precautions taken to reduce risk of falls during hospitalization. Patient refused to use BSC, stating it was a hassle to use and she would be using the restroom. Patient does not use walker when ambulating to restroom, uses zepeda to guide herself. Patient stated she does not need the bells on, referring to bed alarm. Patient educated to call for assistance to ambulate to restroom. Will continue to monitor and educate.
[2019-12-24] MEDS: DONEPEZIL HYDROCHLORIDE 5 MG TAB PO SCH (21:18)
[2019-12-24] MEDS: ATORVASTATIN 20 MG TAB PO SCH (21:20)
[2019-12-24] MEDS: TEMAZEPAM 15 MG CAP PO PRN (22:18)
--- NOTE | 2019-12-24 23:30 | NUR ---
Call to technical healthcare consultant RE BP Second attempt at calling technical healthcare consultant doctor for Dr. Iglesias in regards to patients continuous blood pressure. Gave scheduled 22:00 metoprolol with BP 167/73 and HR 69. Reassessed BP 188/84 and HR 67. Patient also complains of headache 07/22, tylenol PRN was given at 2033 with no relief. Called and left message with technical healthcare consultant doctor. Awaiting call back.
--- NOTE | 2019-12-24 23:45 | NUR ---
Received call back and new orders Received call back from Dr. Metcalf, explained elevated BP and headache. Per Dr. Metcalf, we need to get blood pressure under control. Received new order for Hydralazine 10 mg IV Q6H PRN for SBP >160. Order read back and verified.
[2019-12-24] MEDS: hydrALAZINE HCL 20 MG/ML VL IV PRN (23:52)
[2019-12-25] VITALS (7 sets, daily range): BP systolic 121–161; BP diastolic 49–93
--- NOTE | 2019-12-25 01:41 | NUR ---
BP reassessed BP 124/52 HR 78. Patient resting in bed comfortably.
[2019-12-25] MEDS: ACCU-CHEK COMFORT CURVE STRIP VI SCH ×4 (06:09→22:11)
[2019-12-25] MEDS: GABAPENTIN 100 MG CAP PO SCH ×3 (06:13→22:29)
[2019-12-25] MEDS: InsuLIN REG 1unit/0.01ml Soln (100units/ml) SC SCH ×4 (06:21→22:30)
--- NOTE | 2019-12-25 08:10 | NUR ---
Opening Shift Note Assumed care of patient, awake and alert. No S/S of distress/SOB or pain. Instructed on POC and to call for assist PRN, will continue to monitor for changes Q1hr and PRN. Bed locked in lowest position with two side rails up and call light in reach.
[2019-12-25] MEDS ORDERED: ADENOSINE 35 MG in GIVE UN-DILUTED 0 ML IV STA (08:11)
[2019-12-25] MEDS: FAMOTIDINE 20 MG TAB PO SCH ×2 (10:00→14:03)
--- NOTE | 2019-12-25 12:30 | NUR ---
CALLED [facility] AND PER REP DON HE WILL BE IN LATER THIS AFTERNOON.
[2019-12-25] MEDS: METOPROLOL TARTRATE 25 MG TAB PO SCH ×2 (14:03→22:28)
[2019-12-25] MEDS: ASPirin 81 mg TAB PO SCH (14:03)
[2019-12-25] MEDS: HCTZ 25 MG TAB PO SCH (14:03)
[2019-12-25] MEDS: LOSARTAN POTASSIUM 50 MG TAB PO SCH (14:04)
[2019-12-25] MEDS: ENOXAPARIN SOD 40 MG/0.4 ML SYRINGE SC SCH (14:04)
[2019-12-25] MEDS: ACETAMINOPHEN 325 MG TAB PO PRN ×2 (17:26→23:27)
[2019-12-25] MEDS: hydrALAZINE HCL 20 MG/ML VL IV PRN (17:32)
[2019-12-25] MEDS: DONEPEZIL HYDROCHLORIDE 5 MG TAB PO SCH (22:28)
[2019-12-25] MEDS: ATORVASTATIN 20 MG TAB PO SCH (22:28)
[2019-12-25] MEDS: TEMAZEPAM 15 MG CAP PO PRN (22:29)
[2019-12-26 05:00] VITALS: BP 110/58
[2019-12-26] MEDS: ACCU-CHEK COMFORT CURVE STRIP VI SCH ×3 (06:13→17:20)
[2019-12-26] MEDS: GABAPENTIN 100 MG CAP PO SCH ×2 (06:22→14:00)
[2019-12-26] MEDS: InsuLIN REG 1unit/0.01ml Soln (100units/ml) SC SCH ×3 (06:23→17:35)
[2019-12-26] MEDS ORDERED: glipiZIDE 5 MG TAB PO SCH (07:00)
[2019-12-26] MEDS ORDERED: metFORMIN HYDROCHLORIDE 500 MG TAB PO SCH (08:00)
[2019-12-26] MEDS: ASPirin 81 mg TAB PO SCH (08:52)
[2019-12-26] MEDS: FAMOTIDINE 20 MG TAB PO SCH (08:52)
[2019-12-26] MEDS: ENOXAPARIN SOD 40 MG/0.4 ML SYRINGE SC SCH (08:53)
[2019-12-26] MEDS: LOSARTAN POTASSIUM 50 MG TAB PO SCH (08:53)
[2019-12-26] MEDS: HCTZ 25 MG TAB PO SCH (08:54)
[2019-12-26] MEDS: METOPROLOL TARTRATE 25 MG TAB PO SCH (08:55)
[2019-12-26 09:25] VITALS: BP 132/65
[2019-12-26 12:38] VITALS: BP 137/62
--- NOTE | 2019-12-26 15:08 | NUR ---
This RN is trying to get a hold of a family member (Teddy Pickens) son to pick pt. up. This RN will check with Behavioral Medical Director to see if they have another number.
[2019-12-26 17:10] VITALS: BP 169/64
--- NOTE | 2019-12-26 17:36 | NUR ---
This RN located family member. pt.'s son (Tip) will be here to pick her up at 7:30 pm or so.
--- NOTE | 2019-12-26 19:32 | NUR ---
[facility]
--- NOTE | 2019-12-26 20:18 | NUR ---
DISCHARGE IV REMOVED WITH CATHETER INTACT. TELE BOX RETURNED. HOG GRADER ACCOMPANIED PATIENT VIA W/C
== END 2019-12-26 20:15 | disposition home health service (06) | DRG 313 ==
LOC: EDBD 17:11 → ER 17:11 → TELE 22:09 → TELE-WESTW 12-24 01:59
PROVIDERS: ADMIT Nurse Practitioner; ATTEND Hospitalist
PROC: 4B02XSZ Measurement of Cardiac Pacemaker, External Approach (ICD-10-PCS; principal; 2019-12-25)
DX: R07.89 Other chest pain (principal); R55 Syncope and collapse; F03.90 Unspecified dementia, unspecified severity, without behavioral disturbance, psychotic disturbance, mood disturbance, and anxiety; E78.5 Hyperlipidemia, unspecified; I10 Essential (primary) hypertension; H54.8 Legal blindness, as defined in USA; E11.40 Type 2 diabetes mellitus with diabetic neuropathy, unspecified; R00.1 Bradycardia, unspecified; I25.10 Atherosclerotic heart disease of native coronary artery without angina pectoris; Z90.710 Acquired absence of both cervix and uterus; Z87.891 Personal history of nicotine dependence; Z79.899 Other long term (current) drug therapy; Z95.0 Presence of cardiac pacemaker
CPT/HCPCS: 36415; 71045; 78452; 80053; 82962; 83880; 84484; 85025; 85379; 87081; 93005; 93017; 96372; 96374; G0378; J0153; J1815; J2405